=== PATIENT | female | born 1950 | race Caucasian/White ===

== ENCOUNTER 2023-06-14 07:48 | Observation (INO) ==
--- NOTE | 2023-06-10 21:10 | History & Physical Report ---
Date of Service June 10, 2023 Assessment & Plan (1) Unilateral primary osteoarthritis, right knee: Plan: Patient scheduled for surgery: Right total knee arthroplasty using [employer] Nephew MRI matched components. Overnight hospital stay with observation due to remote history of pulmonary embolism. 2 kaila Ventura on-call the OR. Anesthesia plan for spinal with sedation, adductor canal block and intra- articular local. Will commence Eliquis 5 mg 1 p.o. daily beginning postoperative day #1. Home health nursing with home physical therapy to commence after discharge. Ice to the right knee. Plan for discharge home postoperative day #1. Follow-up with Dr. Brown 2 weeks postoperative. (2) Effusion, right knee: (3) Right knee pain: (4) Genu varum of right lower extremity: History of Present Illness Chief Complaint: Right knee pain, swelling and progressive deformity. Primary Care Provider: NO PCP This pleasant 72-year-old female has progressive right knee pain, swelling and deformity which is limiting her activities of daily living for the last 3 years. She currently uses a cane to ambulate. She attempted and failed conservative management including NSAIDs, steroid injections, use of a brace, physical therapy, physician directed home exercises, observation, rest, ice and modification of activity. Allergies Allergy/AdvReac Type Severity Reaction Status Date / Time No Known Allergies Allergy Verified 06/07/23 08:46 Home Medications Medication Instructions Recorded Confirmed Type apixaban 5 mg tablet (Eliquis) 5 mg PO BID 06/07/23 06/07/23 History baclofen 10 mg tablet 10 mg PO BID 06/07/23 06/07/23 History calcium carbonate 600 mg calcium 300 mg PO BID 06/07/23 06/07/23 History (1,500 mg) tablet (Calcium) cholecalciferol (vitamin D3) 25 25 mcg PO DAILY 06/07/23 06/07/23 History mcg (1,000 unit) tablet (Vitamin D3) citalopram 20 mg tablet 20 mg PO QAM 06/07/23 06/07/23 History cyanocobalamin (vitamin B-12) 1,000 mcg PO DAILY 06/07/23 06/07/23 History 1,000 mcg capsule dalfampridine 10 mg 10 mg PO Q12H 06/07/23 06/07/23 History tablet,extended release,12 hr gabapentin 100 mg capsule 200 mg PO BID 06/07/23 06/07/23 History glatiramer 40 mg/mL subcutaneous 20 mg subcut WK 06/07/23 06/07/23 History syringe (Copaxone) hydrocodone 10 mg-acetaminophen 1 tab PO BID PRN Pain 06/07/23 06/07/23 History 325 mg tablet lisinopril 5 mg tablet 5 mg PO QAM 06/07/23 06/07/23 History magnesium 250 mg tablet 250 mg PO DAILY 06/07/23 06/07/23 History melatonin 10 mg tablet 10 mg PO HS PRN Sleep 06/07/23 06/07/23 History mirabegron 50 mg tablet,extended 50 mg PO QAM 06/07/23 06/07/23 History release 24 hr potassium 99 mg tablet 99 mg PO DAILY 06/07/23 06/07/23 History pyridoxine (vitamin B6) 100 mg 100 mg PO QAM 06/07/23 06/07/23 History tablet zinc acetate 50 mg (zinc) capsule 50 mg PO DAILY 06/07/23 06/07/23 History Past Med/Surg History Medical History (Updated 06/10/23 @ 21:26 by Bobby Brown DO) Overactive bladder Depression Chronic pain Hypertension Multiple sclerosis Hx pulmonary embolism 2019 > pcp maintains on Eliquis for prevention Surgical History (Updated 06/07/23 @ 09:07 by Christie Julio RN) History of lumbar surgery History of colonoscopy History of section x1 History of appendectomy History of tooth extraction History of cataract surgery bilat History of tonsillectomy History of cholecystectomy Social History Smoking Status: Never smoker Second Hand Exposure: No; Do You Dip or Chew Tobacco: No; Tobacco Cessation Education Requested by Patient: No Hx Alcohol Use: Yes Alcohol type: wine and hard liquor Hx Substance Use: No Preferred Language: [place] Communication Ability: Effective Electrical Repairer Required: No Beliefs That Will Affect Care: None Current Living Situation: Family Other Information That Helps Us Care for You: No Feels Safe at Home: Yes Safety Concerns: Feels Safe At This Time Assistive Devices: Cane and Glasses Physical Exam Constitutional: WD/WN, vitals as above Eyes: PERRL, conjunctivae normal, anicteric sclerae ENMT: external ear and nose normal, oropharynx normal Neck: trachea midline, no thyromegaly Respiratory: normal respiratory effort, lungs clear to auscultation Cardiovascular: Regular rate and rhythm. Extremities are well-perfused x 4. Gastrointestinal (Abdomen): Abdomen is soft, nontender and nondistended. Bowel sounds present. Musculoskeletal: Focused examination right knee demonstrates skin which is warm, dry and intact without rashes, ulcers or nodules. She has an antalgic gait with use of a cane. Diffuse tenderness to palpation right knee joint. Positive effusion. Positive crepitation with active and passive range of motion. Range of motion limit: 3 degrees to 120 degrees with pain. Positive Aimee's test with pain and click medially. Mild-moderate varus deformity. Strength is limited due to pain and guarding. Mild right quadriceps atrophy. Compartments are soft. Homans negative. Distal neurovascular status is intact. Pedal pulses 2/4. Skin: no rashes, warm and dry Neurologic: patellar DTR's 2+ bilat, sensation intact and PERRL, EOMI, accommodation nl, no face palsy, no dysarthria Psychiatric: A+Ox3, euthymic affect Lymphatic: no cervical or axillary lymphadenopathy Results & Data Results & Data Diagnostic Findings Right knee 3 view radiographs demonstrate loss of medial joint space, subchondral sclerosis, marginal osteophytes and early subchondral cyst formation. Mild to moderate varus deformity. No fractures evident. Mild effusion. Bone density within normal limits. Code Status & VTE Plan VTE Prophylaxis Plan VTE Prophylaxis will be ordered: Yes
--- NOTE | 2023-06-12 12:52 | Anesthesiology Consultation ---
Date of Service June 12, 2023 Assessment & Plan (1) Encounter for pre-operative examination: Plan - Eliquis: I contacted patient who states last dose was 06/09/23. - Case discussed in detail including abnormal CXR with Dr. Jose who advised patient is acceptable to proceed without further evaluation or testing from his standpoint. - Outpatient joint assessment: Patient is currently scheduled for inpatient pathway. If re-evaluated and patient/surgeon requests outpatient pathway, patient is not recommended candidate for outpatient joint program from anesthesia standpoint. Patient denied questions or concerns with overnight booking. 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 Chart Review Chart Review: Acceptable Risk for Surgery and Patient NOT seen in Pre Admission Testing History Surgery Operation Date: 06/14/23 10:00 Proposed Procedures p Right Total Knee Arthroplasty - Bobby Brown DO Height/Weight Height: 5 ft 4 in Weight: 90.718 kg Allergies Allergy/AdvReac Type Severity Reaction Status Date / Time No Known Allergies Allergy Verified 06/07/23 08:46 Medications Home Medications Medication Instructions Recorded Confirmed Last Taken apixaban 5 mg tablet (Eliquis) 5 mg PO BID 06/07/23 06/07/23 Unknown baclofen 10 mg tablet 10 mg PO BID 06/07/23 06/07/23 Unknown calcium carbonate 600 mg calcium 300 mg PO BID 06/07/23 06/07/23 Unknown (1,500 mg) tablet (Calcium) cholecalciferol (vitamin D3) 25 25 mcg PO DAILY 06/07/23 06/07/23 Unknown mcg (1,000 unit) tablet (Vitamin D3) citalopram 20 mg tablet 20 mg PO QAM 06/07/23 06/07/23 Unknown cyanocobalamin (vitamin B-12) 1,000 mcg PO DAILY 06/07/23 06/07/23 Unknown 1,000 mcg capsule dalfampridine 10 mg 10 mg PO Q12H 06/07/23 06/07/23 Unknown tablet,extended release,12 hr gabapentin 100 mg capsule 200 mg PO BID 06/07/23 06/07/23 Unknown glatiramer 40 mg/mL subcutaneous 20 mg subcut WK 06/07/23 06/07/23 Unknown syringe (Copaxone) hydrocodone 10 mg-acetaminophen 1 tab PO BID PRN Pain 06/07/23 06/07/23 Unknown 325 mg tablet lisinopril 5 mg tablet 5 mg PO QAM 06/07/23 06/07/23 Unknown magnesium 250 mg tablet 250 mg PO DAILY 06/07/23 06/07/23 Unknown melatonin 10 mg tablet 10 mg PO HS PRN Sleep 06/07/23 06/07/23 Unknown mirabegron 50 mg tablet,extended 50 mg PO QAM 06/07/23 06/07/23 Unknown release 24 hr potassium 99 mg tablet 99 mg PO DAILY 06/07/23 06/07/23 Unknown pyridoxine (vitamin B6) 100 mg 100 mg PO QAM 06/07/23 06/07/23 Unknown tablet zinc acetate 50 mg (zinc) capsule 50 mg PO DAILY 06/07/23 06/07/23 Unknown Past Medical History Medical History Overactive bladder Depression Chronic pain Hypertension Multiple sclerosis Hx pulmonary embolism 2019 pcp maintains on Eliquis for prevention Past Surgical History Surgical History History of lumbar surgery History of colonoscopy History of section x1 History of appendectomy History of tooth extraction History of cataract surgery bilat History of tonsillectomy History of cholecystectomy Social History Smoking Status: Never smoker Do You Dip or Chew Tobacco: No Hx Alcohol Use: Yes Alcohol type: wine and hard liquor alcohol intake frequency: holidays/special occasions only Hx Substance Use: No substance use type: does not use Testing Laboratory Results 06/10/2023 WBC: 5.7 H/H: 13/41 PLATELETS: 205,000 SODIUM: 140 POTASSIUM: 4.2 CHLORIDE: 107 CO2: 31 BUN: 16 CREATININE: 0.7 GLUCOSE: 99 UA: trace protein, moderate leukocyte esterase; culture: 75,000 CFUs/ml lactobacillus species. Consistent with normal female uro-genital tract prashant Electrocardiogram Date: 06/10/23 Sinus rhythm, rate 55 bpm Minimal voltage criteria for LVH Chest X-Ray Date: 06/10/23 Probable trace pleural effusion, uncertain side Borderline cardiomegaly Moderate hiatal hernia
[~2023-06-14 07:48] MED LIST: BUPIVACAINE 0.25% PF 30 ML VIAL ONE; BUPIVACAINE 0.5 % 5 MG/1 ML PF 10ML VIAL ONE; LR 500ML BOLUS, THEN 15ML/HR IV SCH; ROPIVACAINE 0.5% HCL/PF 150 MG, BUPIVACAINE 0.75% MPF 20 ML, EPINEPHrine 0.15 MG, Ketor... INFIL SCH
[2023-06-14] MEDS ORDERED: MIDAZOLAM HCL 1 MG/ML 2ML VIAL ONE (09:32)
[2023-06-14] MEDS ORDERED: fentaNYL citrate PF 100 MCG/2 ML VIAL ONE ×3 (09:32→11:57)
--- NOTE | 2023-06-14 09:45 | History & Physical Bridge Note ---
Date of Service June 14, 2023 History & Physical Bridge Note I have examined the patient, reviewed the History & Physical and in the interval since the performance of the History & Physical I have noted the following changes of clinical significance: no changes noted
[2023-06-14] MEDS ORDERED: ONDANSETRON INJ 2 MG/ML 2 ML VIAL IV PRN ×2 (09:47→13:50)
[2023-06-14] MEDS ORDERED: ATROPINE SULFATE 0.1 MG/ML 10ML SYR IV PRN (09:47)
[2023-06-14] MEDS ORDERED: fentaNYL citrate PF 100 MCG/2 ML VIAL IV PRN (09:47)
[2023-06-14] MEDS ORDERED: ePHEDrine sulfate 50 MG/ML AMP IV PRN (09:47)
[2023-06-14] MEDS ORDERED: ceFAZolin 2000MG 2,000 MG/15 ML SYR IV ONE (09:51)
[2023-06-14] MEDS ORDERED: ceFAZolin 2,000 MG/15 ML IV PUSH IV ONE (09:55)
[2023-06-14] MEDS ORDERED: TRANEXAMIC ACID / 0.7% NACL 1000MG/100ML BAG IV ONE (09:55)
[2023-06-14] MEDS ORDERED: ceFAZolin 330 MG/ML 1 GM VIAL ONE (10:20)
[2023-06-14] MEDS ORDERED: TRANEXAMIC ACID / 0.7% NACL 1,000 MG/100 ML BAG IV SCH (10:30)
[2023-06-14] MEDS ORDERED: ORTHO JOINT ANESTHETIC ONE (10:31)
[2023-06-14] MEDS ORDERED: LIDOCAINE 2% 2 ML VIAL/AMP(20MG/ML) INFIL ONE (10:45)
[2023-06-14] MEDS ORDERED: PROPOFOL IV EMULSION 10 MG/ML 20 ML VIAL IV ONE ×2 (10:45)
[2023-06-14] MEDS ORDERED: DEXAMETHASONE SOD INJ 4 MG/ML VIAL ONE (10:45)
[2023-06-14] MEDS ORDERED: ONDANSETRON INJ 2 MG/ML 2 ML VIAL ONE (10:45)
[2023-06-14] MEDS ORDERED: PHENYLEPHRINE 100MCG/ML 10ML SYR IV ONE (11:38)
--- NOTE | 2023-06-14 13:37 | Operative Report ---
Post Operative Report Pre & Post Diagnosis Operation Date: 06/14/23 10:00 Pre-Op Diagnosis: Unilateral primary osteoarthritis of right knee, right knee pain, genu varum Post-Op Diagnosis: Unilateral primary osteoarthritis of right knee, right knee pain, genu varum I identified the patient and participated in the time-out.: Yes Procedure Operation Date: 06/14/23 10:00 Actual Procedures p Right Total Knee Arthroplasty using a [employer] MRI matched components size 5 femur, size 3 tibia, 35 mm round patella 12 mm posterior stabilized polyethylene. (Right) - Bobby Brown DO Surgeon Bobby Brown DO Certified Procedural Coder None Estimated Blood Loss 10 Findings Consistent with Post-Op Diagnosis Specimens Bone and tissue right knee Drains None Anesthesia Type General Regional Complications none Disposition Accompanied Patient To Recovery: No Indications This is a 72-year-old female with chronic progressive and worsening right knee pain and deformity over the past 3 to 4 years. She attempted and failed conservative management including use of assistive device, NSAIDs, physician directed home exercises, physical therapy, steroid injections, ice, heat, modification of activities and observation. Radiographs demonstrate complete loss of medial joint space with [id number] arthritis, subchondral sclerosis, marginal osteophytes and early subchondral cysts. The patient is scheduled for right total knee arthroplasty as indicated. Description of Procedure All potential risks, benefits, complications, alternatives, rehab, potential for incomplete relief of symptoms, need for surgery, DVT, PE, , persistent pain, swelling, scarring, weakness, neurovascular injury, wound complications, hardware failure, nonunion, malunion and bone fracture were discussed with the patient and family. The patient and family decided to proceed with the procedure as indicated. DESCRIPTION OF PROCEDURE: The patient was taken to the Operating Suite and placed supine on the Operating Room table after the patient had been Anesthetized and LMA placed. An adductor canal block in the preop holding area. Proper right knee operative site was identified and the consent was reviewed. Surgical timeout was performed. The tourniquet was placed high on the right lower extremity. The operative lower extremity was then sterilely prepped and draped in the usual fashion. Elevated and exsanguinated with an Esmarch bandage. Tourniquet inflated to 325 mmHg. Next a midline 10-blade scalpel incision was made directly over the midline of the distal femur and the medial one-third of the patella extending approximately to the level of the tibial tubercle. The incision was deepened through the subcutaneous tissue and meticulous hemostasis was achieved with electrocautery. Full-thickness skin flaps were developed taking care to avoid neurovascular bundles. Next, a median parapatellar capsular incision was made with 10-blade scalpel after the superior medial corner had been marked with a marking pen for later reapproximation. The patella was everted. Soft tissue releases were performed of the knee including along the anterior medial corner to the level of the MCL which was protected. Soft tissue was released adjacent to the MCL with the Dorado elevator. Fat pad was resected anteriorly and small half stovall por tion of tissue was resected at the superior margin of the femoral articular surface. Next, the patella thickness was measured with caliper and held in everted position with Spenser. Next, sagittal saw was used to make orthogonal cuts to the level of the patellar nose. Caliper was used to remeasure the patella and the appropriate sized patellar alignment guide was then put in place. Peg holes were drilled and alignment guide was then removed. Next, the femoral cutting block was placed on the distal aspect of the femur and pinned in place. Next the distal femoral cut was made based off the patient's anatomy and MRI patient matched cutting block. Next, a size 5 distal 4-in-1 cutting block was tamped in place then stabilized with pins. Homans provided soft tissue retraction and then anterior chamfer and posterior chamfer cuts were made with the sagittal saw. Next, the 4-in-1 cutting block was then removed followed by removal of all bone fragments. Next, attention was then directed toward the proximal tibia. Blunt Lion was placed posterior to the tibia to protract it anteriorly and medial and lateral sharp Lion retractors were placed. Soft tissue and portion of the menisci were then resected at this time and MRI matched proximal tibial cutting block was then pinned in place and proximal tibial cut was made with sagittal saw. Alignment guide was removed. Pins were removed and the proximal fragment of the tibia was then sharply excised and removed. Next, proximal tibial tray trial size size 3 was then pinned in place and this was felt to be well matched for the patient's anatomy, pinned in place and keel punch was then utilized with estephania. Keel punch was then removed and cervical laminar mixer whipped topping was then placed in the medial compartment. The lateral compartment was then cleared of osteophytes and soft tissue impingement. I then switched the lamina mixer whipped topping to lateral compartment and medial compartment was debrided of any bony and soft tissue impingement. Next the laminar mixer whipped topping was removed and the femoral trial, in this case size 5 was then malleted in place, pinned and then femoral notch milling guide was then placed anteriorly. This was then reamed and then punched with sharp punch and mallet. Next, the femoral trial pin was then inserted into the notch guide and size 12 mm poly was inserted and the trials were reduced. The patellar button was then placed into the previously prepared patella and Range of motion and stability testing was performed. Next after range of motion and stability test was completed the implants were adjusted for appropriate size. Trials were all removed. The posterior distal femoral periosteum, joint capsule, medial and lateral gutters were carefully injected with Orthomix. Next the joint was then cleansed with pulsatile lavage using approximately 3 liters normal saline with Bacitracin additive. Next all bony surfaces were the suctioned and drained and standard cementing technique was performed with antibiotic cement and all excess cement was then removed from around the final implants. A 12 mm posterior stabilized polyethylene bearing was implanted and checked for stability. The patellar button was then cemented in place and held in place with patellar clamp. The leg was then placed in full extension over a well-padded heel bump to fully compress and seat the final implants. Dilute Betadine solution was then used to fill the joint space. The dilute Betadine solution was left in place for approximately 3 minutes. After 3 minutes the dilute Betadine solution was completely suctioned from the joint. Pulsatile lavage was used to cleanse the joint completely. Orthomix was injected into the soft tissues with an attempt made to avoid injection around the common peroneal nerve. Next, double lumen 10 [place] Hemovac drains were then placed exiting anterolaterally and the capsule was closed using interrupted #1 Vicryl sutures. The dermis was closed using buried interrupted 2-0 Vicryl and the skin closed with skin maggie. A sterile compressive dressing was applied from the toes to the groin and overwrapped with Shan wrap. The tourniquet was released. The patient was awakened and taken to recovery in stable condition. I attest to the content of the Intraoperative Record and any orders documented therein. Any exceptions are noted below.
[2023-06-14] MEDS ORDERED: KETOROLAC 30 MG/ML VIAL ONE (13:45)
[2023-06-14] MEDS ORDERED: ACETAMINOPHEN 325 MG TAB PO PRN (13:50)
[2023-06-14] MEDS ORDERED: ALUMINUM/MAGNESIUM SUSP 30 ML UDC PO PRN (13:50)
--- NOTE | 2023-06-14 14:11 | Anesthesiology Progress Note ---
Date of Service June 14, 2023 Anesthesia Post Procedure Vital Signs Vital Signs: Temp Pulse Pulse Resp BP Pulse Ox O2 Del Method 06/14/23 14:05 37.1 C 62 15 128/74 98 Nasal Cannula 06/14/23 13:55 64 17 124/70 94 Room Air 06/14/23 13:45 61 22 137/70 97 Oxymask 06/14/23 13:35 71 17 143/73 H 99 Oxymask 06/14/23 13:25 73 16 149/82 H 92 Oxymask 06/14/23 13:16 36.6 C 78 17 107/86 95 Oxymask 06/14/23 08:47 36.1 C L 80 16 160/96 H 98 Room Air O2 Flow Rate 06/14/23 14:05 2 06/14/23 13:55 06/14/23 13:45 5 06/14/23 13:35 5 06/14/23 13:25 5 06/14/23 13:16 5 06/14/23 08:47 Pain Intensity Right Knee: Pain Intensity: 6 Transfer of Care Handoff Completed per policy Notes Mental Status: alert / awake / arousable Patient Amnestic to Procedure: Yes Nausea / Vomiting: adequately controlled Pain: adequately controlled Airway Patency, RR, SpO2: stable & adequate BP & HR: stable & adequate Hydration State: stable & adequate Anesthetic Complications: no major complications apparent and Pt Satisfied with anesthetic care
--- NOTE | 2023-06-14 14:30 | XRay Report ---
XR knee RT 1 or 2V routine CLINICAL HISTORY: Postoperative evaluation. COMPARISON: MRI of the right knee May 15, 2023. Leg length study May 23, 2023. FINDINGS: Alignment of the total right knee arthroplasty is anatomic. There is no periprosthetic fra cture or unexpected radiopaque foreign body. There are skin maggie. IMPRESSION: Expected findings following total right knee arthroplasty. ACT 112: Negative or not required by law. Electronically signed by: Fercho Lyons M.D. 06/14/2023 2:29 PM
[2023-06-14] MEDS ORDERED: DALFAMPRIDINE 10 MG PO SCH (14:38)
[2023-06-14] MEDS ORDERED: MELATONIN 3 MG TAB PO PRN (14:51)
[2023-06-14] MEDS: CeleBREX 200 MG CAP PO SCH (15:24)
[2023-06-14] MEDS: HYDROcodone/ACETAMINOPHEN 10/325 TAB PO PRN ×2 (16:20→22:15)
[2023-06-14] MEDS: CALCIUM CARBONATE 1250MG TAB PO SCH (16:21)
[2023-06-14] MEDS: ceFAZolin 2000MG 2,000 MG/15 ML SYR IV SCH (17:13)
[2023-06-14] MEDS: GABAPENTIN 100 MG CAP PO SCH (20:33)
[2023-06-14] MEDS: BACLOFEN 10 MG TAB PO SCH (20:33)
[2023-06-15] MEDS: ceFAZolin 2000MG 2,000 MG/15 ML SYR IV SCH ×2 (02:21→10:46)
[2023-06-15] MEDS: BACLOFEN 10 MG TAB PO SCH (07:54)
[2023-06-15] MEDS: GABAPENTIN 100 MG CAP PO SCH (07:54)
[2023-06-15] MEDS: CALCIUM CARBONATE 1250MG TAB PO SCH (07:55)
[2023-06-15] MEDS: CeleBREX 200 MG CAP PO SCH (07:56)
[2023-06-15] MEDS ORDERED: ZINC SULFATE 220 MG CAPSULE PO SCH (09:00)
[2023-06-15] MEDS ORDERED: CHOLECALCIFEROL 1,000 UNITS 25 MCG TAB PO SCH (09:00)
[2023-06-15] MEDS: HYDROcodone/ACETAMINOPHEN 10/325 TAB PO PRN (09:00)
[2023-06-15] MEDS ORDERED: CYANOCOBALAMIN (B-12) 500 MCG TABLET PO SCH (09:00)
[2023-06-15] MEDS ORDERED: CITALOPRAM 20 MG TAB PO SCH (09:00)
[2023-06-15] MEDS ORDERED: NON-FORMULARY MEDICATION (Potassium 99 mg Tablet) PO SCH (09:00)
[2023-06-15] MEDS ORDERED: VIBEGRON 75 MG TAB PO SCH (09:00)
[2023-06-15] MEDS ORDERED: PYRIDOXINE HCL 50 MG TAB PO SCH (09:00)
[2023-06-15] MEDS ORDERED: lisinopril 5 MG TAB PO SCH (09:00)
[2023-06-15] MEDS ORDERED: MAGNESIUM OXIDE 400 MG TAB PO SCH (09:00)
[2023-06-15] MEDS ORDERED: TRANEXAMIC ACID / 0.7% NACL 1,000 MG/100 ML BAG IV SCH (10:15)
--- NOTE | 2023-06-15 12:00 | Orthopedic Progress Note ---
Date of Service June 15, 2023 Assessment & Plan (1) Unilateral primary osteoarthritis, right knee: Plan: Postop day #1 status post right total knee arthroplasty using [employer] Nephew MRI matched components. Completed antibiotics per protocol. Eliquis 5 mg 1 p.o. daily beginning postoperative day #1 for VTE prophylaxis. Home health nursing with home physical therapy to commence after discharge today. Continue physician directed home exercises. Emphasize full extension and full flexion as tolerated right knee. Ambulate with walker and assist x 1 initially under supervision of physical therapy at home. Ice to the right knee. Continue Celebrex daily as prescribed and the Vicodin as needed as directed. Plan for discharge now. Follow-up with Dr. Brown 2 weeks postoperative. (2) Effusion, right knee: (3) Right knee pain: (4) Genu varum of right lower extremity: Admission and Anticipated Discharge Date Admission Date: June 14, 2023 Subjective Patient seen while on rounds. Minimal if any right knee pain. Completed physical therapy and Occupational Therapy. Patient eager and ready for discharge to home. [facility] health care is scheduled to follow-up with patient today upon arrival home. Physical Exam Constitutional: WD/WN, vitals as above Eyes: PERRL, conjunctivae normal, anicteric sclerae ENMT: external ear and nose normal, oropharynx normal Neck: trachea midline, no thyromegaly Respiratory: normal respiratory effort, lungs clear to auscultation Gastrointestinal (Abdomen): Abdomen soft, nontender and nondistended. Bowel sounds present. Musculoskeletal: Right knee dressing is clean, dry and intact. No strikethrough present. Calves are soft. Homans negative. Distal neurovascular status is intact. Range of motion is 0 to 90 degrees flexion without discomfort. Some right knee stiffness noted. Pedal pulses palpable. No evidence of foot drop right lower extremity. Skin: no rashes, warm and dry Neurologic: patellar DTR's 2+ bilat, sensation intact and PERRL, EOMI, accommodation nl, no face palsy, no dysarthria Psychiatric: A+Ox3, euthymic affect Lymphatic: no cervical or axillary lymphadenopathy Results & Data Vital Signs (Past 12 Hours) Vital Signs Temp Pulse Resp BP Pulse Ox O2 Del Method 06/15/23 11:06 37.0 C 92 H 16 116/76 95 Room Air 06/15/23 07:36 36.9 C 76 16 124/77 92 Room Air 06/15/23 03:12 36.6 C 64 16 117/67 96 Room Air Laboratory Results Reviewed. Status post total knee arthroplasty in normal alignment.
== END 2023-06-15 17:26 | disposition home health service (06) ==
LOC: ASU 07:48 → 3E 07:48